=== PATIENT | female | born 1955 | race Hispanic/Latino ===

== ENCOUNTER 2025-01-27 07:56 | Emergency (ER) | payer OTHER ==
[~2025-01-27] VITALS: Ht 152.4 cm; Wt 95.3 kg
--- NOTE | 2025-01-27 09:18 | ERN ---
General Chief Complaint: Mechanical Fall Stated Complaint: FALL Time Seen by MD: 08:05 History of Present Illness Initial Comments 69-year-old female who presents for a fall. She had a mechanical trip and fall. She landed on her right shoulder. She has pain to the right shoulder. No head injury. No loss of consciousness. She was in her normal state of health prior. Medical conditions: Diabetes, hypertension Allergies: Coded Allergies: No Known Drug Allergies (Unverified Allergy, Unknown, 01/27/25) Past Medical History Past Medical History: Arthritis, Diabetes-Type II, High Cholesterol, Hypertension Past Surgical History: Cholecystectomy Surgical History Other: SBO ROS Dictation CONSTITUTIONAL: No chills, no fever, no weakness, no diaphoresis, no malaise. HEAD/FACE: No signs of trauma. EENT: No eye pain, no blurred vision, no tearing, no double vision, no ear pain, no ear discharge, no nose pain, no nasal congestion, no throat pain, no throat swelling, no mouth pain. RESPIRATORY: No cough, no orthopnea, no SOB, no stridor, no wheezing. CARDIOVASCULAR: No chest pain, no edema, no palpitations, no syncope. GASTROINTESTINAL/ABDOMINAL: No abdominal pain, no constipation, no diarrhea, no nausea, no vomiting. GENITOURINARY: No abnormal discharge, no dysuria, no frequent urination, no hematuria. No complaints of pain in the genitals. MUSCULOSKELETAL: This is since it is right shoulder pain INTEGUMENTARY: No change in color, no change in hair/nails, no dryness, no lesion, no lumps, no rash. NEUROLOGICAL/PSYCH: No anxiety, not depressed, no emotional problem, no headache, no numbness, no pre-existing deficit, no history of seizures, no tremors, no weakness. HEMATOLOGIC/LYMPHATIC: Not anemic, no history of blood clots, no apparent bleeding, no bruising, glands not swollen. All Systems Negative, Except as Noted. Physical Exam Physical Exam Dictation VITAL SIGNS: Reviewed. GENERAL APPEARANCE: Alert, oriented x3, no acute distress, obese. HEAD AND FACE: Non-traumatic. EYES: PERRL, pink conjunctivas, eyelid no trauma, anterior chamber clear. EARS: Pinnas intact and no signs of trauma or erythema. Ear canals clear and no discharge. TMs no erythema. NOSE: No discharge, no bleeding. OROPHARYNX: Mouth normal, teeth no caries, tongue pink. Pharynx clear, no erythema. Tonsils no exudates, no abscesses noted. Mucous membrane moist. NECK: Supple, non-tender, no thyromegaly, no masses, no JVD, no bruits. BREAST: Deferred. CHEST: No tenderness, no crepitus, no paradoxical movement, no retractions. LUNGS: Clear, well-ventilated, symmetric, no rales, no wheezing, no rhonchi, no stridor, good breath sounds bilaterally. HEART: Regular rate, regular rhythm, no murmur, no gallops. VASCULAR: No peripheral edema. ABDOMEN: Soft, positive bowel sounds, nondistended, no guarding, nontender, no rebound, no masses no hepatomegaly, no splenomegaly, no Mccann's sign, no hernias. RECTAL: Deferred. GENITAL: Deferred. NEUROLOGICAL: Normal speech, gross motor function intact, gross sensory function intact. MUSCULOSKELETAL: Neck nontender, full range of motion, back nontender, full range of motion. EXTREMITIES: Nontender, full range of motion. SKIN: Color pink, dry, no turgor, no rash, no lacerations, no abrasions, no contusions. LYMPHATICS: Deferred. MDM CC: Right shoulder pain status post mechanical fall Historian: Patient Comorbidities: Diabetes, hypertension Limitations by social determinants of health: None Differential diagnosis: Fracture versus dislocation versus soft tissue injury Vital signs show hypertension, otherwise stable. Clinical exam shows right shoulder pain, increase with range of motion. Neurovascularly intact distally. Shoulder x-ray per my independent interpretation shows anterior shoulder dislocation no obvious fractures Patient given hydralazine for the blood pressure. We will need a procedural sedation to put the shoulder back. Patient is ASA class two, hypertension and diabetes. No cardiac conditions, no lung conditions, no airway compromise. Procedural sedation performed. Patient was given Versed and fentanyl. RT, RN at bedside. No complication. Repeat x-rays show reduction. Patient monitored. Placed in a sling. She came back to her baseline. Blood pressure had improved. I suspect the blood pressure was elevated due to uncontrolled hypertension combined with the pain. Plan will be to discharge with pain control, sling, recommend orthopedic follow up. ED Course Orders Procedure Category Date Status Time Shoulder Comp 2+Vws Rt RAD 01/27/25 Resulted 08:08 Chest 1vw RAD 01/27/25 Resulted 08:08 Humerus 2+Vws Rt RAD 01/27/25 Resulted 08:08 Sling ANISA 01/27/25 In Process 08:08 Ibuprofen 600 Mg PHA 01/27/25 Complete Tablet (Motrin) 08:30 Acetaminophen 500mg PHA 01/27/25 Complete Tab (Tylenol 500mg T 08:30 Apply Ice Pack To: CPOE 01/27/25 Transmitted (Er) 08:08 Fentanyl Citrate Pf PHA 01/27/25 Complete 0.05 Mg/Ml (Fentanyl 09:30 Midazolam Hcl (Versed) PHA 01/27/25 Complete 09:30 Hydralazine 20mg Inj PHA 01/27/25 Complete (Apresoline 20mg In 09:30 Shoulder Comp 2+Vws Rt RAD 01/27/25 Taken 09:38 Hydralazine 20mg Inj PHA 01/27/25 Complete (Apresoline 20mg In 10:30 Current Medications Medications (Trade) Dose Ordered Sig/Lewis Route PRN Reason Start Time Stop Time Status Last Admin Dose Admin Acetaminophen (TYLenol 500MG TAB) 1,000 mg ONCE ONCE PO 01/27/25 08:30 01/27/25 08:31 DC 01/27/25 08:18 Fentanyl Citrate (FENTanyl CITRate PF 50 MCG/ 1 ML 2ML VIAL) 100 mcg ONCE ONCE IVP 01/27/25 09:30 01/27/25 09:31 DC 01/27/25 09:44 Hydralazine HCl (APRESOLine 20MG INJ) 10 mg ONCE ONCE IV 01/27/25 09:30 01/27/25 09:31 DC 01/27/25 09:41 Hydralazine HCl (APRESOLine 20MG INJ) 10 mg ONCE ONCE IV 01/27/25 10:30 01/27/25 10:31 DC Ibuprofen (moTRIN) 600 mg ONCE ONCE PO 01/27/25 08:30 01/27/25 08:31 DC 01/27/25 08:18 Midazolam HCl (Versed) 5 mg ONCE ONCE IVP 01/27/25 09:30 01/27/25 09:31 DC 01/27/25 09:43 Vital Signs Date Time Temp Pulse Resp B/P (MAP) Pulse Ox O2 Delivery O2 Flow Rate FiO2 01/27/25 10:27 60 234/104 01/27/25 10:12 98.1 60 22 234/104 100 Nasal Cannula* 2 28 01/27/25 10:05 98.4 62 19 192/85 99 Nasal Cannula* 2 28 01/27/25 10:02 98.4 60 13 187/80 100 Nasal Cannula* 2 28 01/27/25 09:58 98.1 66 17 234/96 99 Nasal Cannula* 2 28 01/27/25 09:55 98.4 72 15 243/101 100 Nasal Cannula* 2 28 01/27/25 09:52 98.4 74 17 244/119 100 Nasal Cannula* 2 28 01/27/25 09:41 70 212/104 01/27/25 08:30 97.7 70 19 212/104 98 Room Air* 0 21 01/27/25 08:01 97.7 70 18 256/111 99 Room Air 0 Procedure Dictation Procedural sedation note Consent: Written in chart Indication: Closed reduction of the right shoulder for dislocation Patient is hypertensive. Given hydralazine. Blood pressure improved. Mallampati two ASA two 100 mcg fentanyl, 2 mg Versed given Good sedation, no episodes of apnea, stable vital signs Reduction performed Patient returned to baseline Total time 10 minutes See nurse's note for details Joint Reduction Joint Reduction : Joint Reduction Site: shoulder (R) Conscious Sedation: Yes Reduction Attempts: 1 Pre-Procedure NV Exam: Yes Post-Procedure NV Exam: Yes post joint reduction film: joint reduced Progress procedural sedation with versed/fentanyl written consent in chart time out performed traction, counter traction closed reduction successful in 1 minute x-ray reviewed, reduced. NV intact patient returned to baseline no complications DX & DISP Disposition: Discharge Departure Impression: Primary Impression: Dislocation of right shoulder joint Condition: Stable Scripts Ondansetron (Ondansetron Odt) 4 Mg Tab.rapdis 1 TAB PO Q6HPRN PRN for nausea/vomiting for 2 Days, #6 TAB 0 Refills Prov: ALEJANDRO MARIE DO 01/27/25 Hydrocodone/Acetaminophen (Hydrocodon-Acetaminophen 5-325) 5 Mg-325 Mg Tablet 1 TAB PO TIDP PRN for pain for 5 Days, #15 TAB 0 Refills Prov: ALEJANDRO MARIE DO 01/27/25 Meloxicam (Meloxicam) 15 Mg Tablet 15 MG PO DAILY PRN for PAIN for 10 Days, #10 TAB Prov: ALEJANDRO MARIE DO 01/27/25 Additional Instructions: You had a dislocated right shoulder. It was reduced here in the ER. You will need to follow up with Orthopedics as an outpatient. I have given you a referral to Dr. Sanchez. Please bring these discharge papers with you to the visit. Wear the sling that you have been provided at all times until you have been cleared by an orthopedic. You may remove the sling briefly for hygiene and basic stretching to prevent elbow, wrist, and hand stiffness. Do not lift, push or pull anything until you are cleared by orthopedics. I recommend you apply ice packs to the shoulder for 20 minutes at a time, 3-4 times per day for the next 48 hours. I have prescribed 15 mg meloxicam tabs to use as needed for pain or discomfort (You can also take 2 x 7.5 mg tabs as needed). I have prescribed [place] tabs to use for severe pain. Use as needed. These medications may make you dizzy or gave you a stomach ache. Do not drive with this medication. Sign you received fentanyl and Versed during your shoulder reduction. These medications can cause drowsiness, poor coordination, and memory loss for up to 12-[address], operate machinery, sign labeled documents, or drank alcohol for the next 24 hours. You may feel some nausea and a mild headache. I have prescribed ondansetron dissolvable tabs to use as needed for nausea. You can also take [id number] Tylenol for pain. Your blood pressure was elevated here in the ER. Continue with your home blood pressure medications. Follow up with the primary doctor regarding blood pressure control. Please return to the emergency department if you have any concerns. Referrals: SELF,REFERRAL (PCP) ALEJANDRO MARIE DO Jan 27, 2025 09:18
--- NOTE | 2025-01-27 09:30 | NUR ---
PT BEING SET/PREPPED FOR A REDUCTION OF HER R SHOULDER.
--- NOTE | 2025-01-27 09:30 | HMCIMG ---
EXAM: CR Chest, single view. CLINICAL HISTORY: Fall, pain COMPARISON: Prior chest radiograph dated FINDINGS: The lungs show no infiltrate or other acute findings. No pleural effusion or pneumothorax. Mild cardiomegaly with bilateral pulmonary congestion. No acute osseous abnormality. Degenerative changes in the mid and lower thoracic spine. IMPRESSION: Mild cardiomegaly with bilateral hilar congestion. No acute infiltrates or effusion. /[place]
--- NOTE | 2025-01-27 09:31 | HMCIMG ---
EXAM: CR Right Shoulder, 2 views. CLINICAL HISTORY: Fall, pain. COMPARISON: None provided. FINDINGS: Mild degenerative changes in the right acromioclavicular joint. Anterior subcoracoid dislocation of the right humeral head. Subtle irregularity of the anteroinferior margin of the glenoid, possibility of fracture. No aggressive osseous lesion. The soft tissues are unremarkable. IMPRESSION: Anterior subcoracoid dislocation of the right humeral head. Subtle irregularity of the anteroinferior margin of the glenoid, possibility of fracture.Mild degenerative changes in the right acromioclavicular joint. /[place]
--- NOTE | 2025-01-27 09:33 | HMCIMG ---
EXAM: CR Right humerus, 2 views. CLINICAL HISTORY: Fall, pain. COMPARISON: None provided. FINDINGS: Mild degenerative changes in the right acromioclavicular joint. Anterior subcoracoid dislocation of the right humeral head. Subtle irregularity of the anteroinferior margin of the glenoid, possibility of fracture. No aggressive osseous lesion. The soft tissues are unremarkable. IMPRESSION: Anterior subcoracoid dislocation of the right humeral head. Subtle irregularity of the anteroinferior margin of the glenoid, possibility of fracture. Mild degenerative changes in the right acromioclavicular joint. /[place]
--- NOTE | 2025-01-27 09:35 | NUR ---
PER PT PERMISSION, I SPOKE AND GAVE UPDATE TO PTS SON IN LAW. UPON DISCHARGE, WE WILL CALL HIM AND HE WILL COME IN AND PICK HER UP AND LISTEN TO THE DISCHARGE INSTRUCTIONS. SHE WILL GO HOME WITH A SLING AND POSSIBLE ORTHO FOLLOW UP
--- NOTE | 2025-01-27 09:40 | NUR ---
PT PLACED ON CLEAT LAYER. OXYGEN ON STANDBY ALONG W/CRASH CART
[2025-01-27] MEDS: MIDAZOLAM HCL 1 MG/ML 2ML VIAL IVP ONE (09:43)
--- NOTE | 2025-01-27 09:50 | NUR ---
PT WAS ASSISTED OOB TO BR VIA W/C BY JESUSITA MILLER AND BACK TO VOID
--- NOTE | 2025-01-27 09:55 | NUR ---
BE SURE TO REFER TO CONSCIOUS SEDATION FORM
--- NOTE | 2025-01-27 09:57 | NUR ---
CONSENTS AND CONSCIOUS SEDATION PAPERWORK HAVE BEEN COMPLETED AND STARTED. PENDING ED MD.
[2025-01-27] MEDS ORDERED: MELO-108 PO (10:42)
[2025-01-27] MEDS ORDERED: ONDA-243 PO (10:42)
[2025-01-27] MEDS ORDERED: HYDR-4060 PO (10:42)
--- NOTE | 2025-01-27 11:07 | HMCIMG ---
EXAM: CR right Shoulder, 2 View. CLINICAL HISTORY: POST REDUCTION COMPARISON: Radiograph from earlier today FINDINGS: There is suggestion of mild persistent anterior subluxation of the humeral head relative to the glenoid fossa, however this may be related to projection of the radiograph. Recommend an additional Y view radiograph or CT imaging to confirm anatomical alignment. IMPRESSION: 1. Possible mild persistent anterior subluxation of the humeral head; recommend additional Y view radiograph or CT imaging to confirm anatomical alignment. /[place]
--- NOTE | 2025-01-27 11:10 | NUR ---
REFER TO SEDATION FLOW SHEET IN REGARDS TO VITAL SIGNS
--- NOTE | 2025-01-27 12:49 | HMCIMG ---
EXAM: CR right Shoulder, 1 View. CLINICAL HISTORY: Y view COMPARISON: Right shoulder series 01/27/2025. FINDINGS: A single Y view was provided. BONES: No acute fracture or aggressive appearing osseous lesion. JOINTS: No dislocation. The joint spaces are normal. Alignment of the glenohumeral joint appears normal. SOFT TISSUES: The soft tissues are unremarkable. IMPRESSION: No acute abnormality evident on examination of the right shoulder. No acute fracture or dislocation. /[place]
[2025-01-27 13:05] VITALS: BP 167/79; PULSE 74; RESP 16; TEMP 98; O2SAT 99
--- NOTE | 2025-01-27 13:23 | NUR ---
DC PATIENT WAS DC'D BY DR FRANK Greer DC'D PATIENTS IV WITH CATH STILL INTACT AND APPLIED 2X2 GAUZE WITH COBAN I EXPLAINED TO PATIENT TO FOLLOW UP WITH PCP, PROVIDED INFO BASED ON DIAGNOSIS, PRESCRIPTIONS, AND ANSWERED ANY FOLLOW UP QUESTIONS, I SUPPLIED PATIENT WITH ARM SLING AND ICE PACKS PATIENT WAS WHEELCHAIRED OUT OF ED BY ME, NO COMPLICATIONS
== END 2025-01-27 13:05 | disposition home or self-care (01) ==
LOC: EDH 07:56
DX: S43.004A Unspecified dislocation of right shoulder joint, initial encounter (principal); I10 Essential (primary) hypertension; E11.9 Type 2 diabetes mellitus without complications; E78.00 Pure hypercholesterolemia, unspecified; Z90.49 Acquired absence of other specified parts of digestive tract; W01.0XXA Fall on same level from slipping, tripping and stumbling without subsequent striking against object, initial encounter; Y93.89 Activity, other specified; Y92.89 Other specified places as the place of occurrence of the external cause; Y99.8 Other external cause status
CPT/HCPCS: 23650; 71045; 73020; 73030; 73060; 96374; 99151; 99152; 99285; J0360; J2250; J3010